=== PATIENT | male | born 1990 | race Caucasian/White ===

== ENCOUNTER → 2016-09-20 | Outpatient (CLI) | payer BC ==
[~2016-09-20] MED LIST: Iopamidol 755 MG/ML 500 ML Multipack Bottle IVPUSH STA
--- NOTE | 2016-09-21 13:25 | CT ---
EXAM DATE: 09/20/16 PATIENT'S AGE: 26 Patient: RAMY GIBBS Facility: [place], [place] Site . Site : 1990 Study: CT Abdomen/Pelvis [id number]/25/2017 10:12:35 AM Ordering Physician: Khoi Sin Final Report: INDICATION: CROHNS F/U TECHNIQUE: CT abdomen and pelvis acquired with IV contrast. COMPARISON: January 08, 2015. FINDINGS: Lower chest: Unremarkable. Liver: Unremarkable. Spleen: Unremarkable. Pancreas: Unremarkable. Gallbladder and bile ducts: Partially contracted. Kidneys: Nonobstructive intrarenal calculus within the upper pole of the left kidney. . Adrenal glands: Unremarkable. GI tract: Postsurgical changes along the ascending colon and rectosigmoid colon. Liquid stool throughout the colon. No evidence of obstruction. The appendix is not visualized. . Vascular structures: Negative. No sign of aneurysm. Lymph nodes: Unremarkable. Miscellaneous: Postsurgical changes within the ventral abdominal wall. Left fat containing periumbilical hernia. Subcutaneous gas within the left ventral abdominal wall which may be related to an injection site. Please correlate clinically. No free air or significant free fluid. Pelvic Organs: Unremarkable. Bones: Unremarkable for age. IMPRESSION: 1. Liquid stool throughout the colon. No evidence of obstruction. Findings are nonspecific, but can be seen with enterocolitis/gastroenteritis. 2. Nonobstructing shadowing calculus within the upper pole of the left kidney. 3. Subcutaneous gas within the left ventral abdominal wall which may be related to an injection site. Please correlate clinically. Dictated by Carroll Priest MD @ 09/21/2016 1:58:54 AM Dictated by: Carroll Priest MD @ 09/21/2016 01:59:22 (Electronic Signature) Report Signed by Proxy and Original Signed Document filed in the Medical Record. [facility]
== END ==
LOC: MW.DI 09:16
PROVIDERS: ATTEND Internal Medicine Gastroenterology
DX: K50.918 Crohn's disease, unspecified, with other complication (principal); N20.0 Calculus of kidney
CPT/HCPCS: 74177; Q9967

== ENCOUNTER 2017-09-07 06:23 | Day surgery (SDC) | payer BC ==
[~2017-09-07 06:23] MED LIST changes: -Iopamidol 755 MG/ML 500 ML Multipack Bottle IVPUSH STA; +Lactated Ringers 1,000 ML IV SCH
[2017-09-07] MEDS ORDERED: Propofol 200 MG/20 ML SDV ONE (07:11)
[2017-09-07] MEDS ORDERED: fentaNYL 250 MCG/5 ML SDV ONE (07:11)
[2017-09-07] MEDS ORDERED: Ondansetron 4 MG/2 ML SDV ONE (07:11)
[2017-09-07] MEDS ORDERED: Midazolam 1 MG/ML 2 ML SDV ONE (07:11)
[2017-09-07] MEDS ORDERED: Lidocaine 2% 5 ML SDV ONE (07:11)
[2017-09-07] MEDS ORDERED: EPINEPHrine 1 MG/ML SDV ONE (07:26)
[2017-09-07] MEDS ORDERED: Oxymetazoline 0.05% Nasal Spray 15 ML Bottle ONE (07:26)
[2017-09-07] MEDS ORDERED: Lidocaine 2% with EPINEPHrine 1:100,000 20 ML MDV ONE (07:26)
[2017-09-07] MEDS ORDERED: Thrombin (Bovine) 5,000 Unit Kit ONE (07:26)
--- NOTE | 2017-09-07 07:31 | PCM.PREANE ---
Preanesthetic Assessment - Anesthesia/Transfusion/Family Hx Anesthesia History: Prior Anesthesia Without Reaction (bowel resection x 2 for crohns) Transfusion History: No Prior Transfusion(s) - Review of Systems General: No Symptoms Pulmonary: No Symptoms Cardiovascular: No Symptoms Gastrointestinal: No Symptoms Neurological: No Symptoms Other: Reports: None - Physical Assessment NPO Status Date: 09/06/17 NPO Status Time: 22:00 O2 Sat by Pulse Oximetry: 96 Respiratory Rate: 16 Vital Signs: Last Vital Signs Temp 36.7 C 09/07/17 06:30 Pulse 92 09/07/17 06:30 Resp 16 09/07/17 06:30 BP 112/73 09/07/17 06:30 Pulse Ox 96 09/07/17 06:30 Height: 1.75 m Weight: 84.822 kg ASA Class: 2 Mental Status: Alert & Oriented x3 Airway Class: Mallampati = 1 Dentition: Reports: Normal Dentition ROM/Head Extension: Full Lungs: Clear to Auscultation, Normal Respiratory Effort Cardiovascular: Regular Rate, Regular Rhythm - Allergies Allergies/Adverse Reactions: Allergies Allergy/AdvReac Type Severity Reaction Status Date / Time Penicillins Allergy Cannot Verified 09/01/17 10:54 Remember - Anesthesia Plan Pre-Op Medication Ordered: None - Acknowledgements Anesthesia Type Planned: General Anesthesia Pt an Appropriate Candidate for the Planned Anesthesia: Yes Alternatives and Risks of Anesthesia Discussed w Pt/Guardian: Yes Pt/Guardian Understands and Agrees with Anesthesia Plan: Yes PreAnesthesia Questionnaire Other HEENT History: wears glasses Respiratory History: Reports: Asthma Other Respiratory History: had asthma as a child, "out grew it" - no inhaler Gastrointestinal History: Reports: Inflammatory Bowel Disease Other Gastrointestinal History: Crohns Disease Musculoskeletal History: Reports: Fracture Other Musculoskeletal History: states had a fx clavicle during Immunologic History: Reports: Immunosuppression - Past Surgical History GI Surgical History: Reports: Colon Other GI Surgeries/Procedures: has had 2 colon resections - SUBSTANCE USE Smoking Status *Q: Current Every Day Smoker Tobacco Use Within Last Twelve Months: Cigarettes Recreational Drug Use History: Yes - HOME MEDS Home Medications: Home Meds Adalimumab [Humira] 1 dose IM ASDIRECTED 09/01/17 [History] azaTHIOprine [Azathioprine] 50 mg PO TID 09/01/17 [History] - CURRENT (IN HOUSE) MEDS Current Meds: Current Medications Lactated Ringer's (Ringers, Lactated) 1,000 mls @ 125 mls/hr IV ASDIRECTED SANCHEZ Last Admin: 09/07/17 07:10 Dose: 125 mls/hr Discontinued Medications Epinephrine HCl (Adrenalin) Confirm Administered Dose 2 mg .ROUTE .STK-MED ONE Stop: 09/07/17 07:27 Fentanyl (Sublimaze) Confirm Administered Dose 250 mcg .ROUTE .STK-MED ONE Stop: 09/07/17 07:12 Lidocaine (Xylocaine-Mpf 2%) Confirm Administered Dose 5 ml .ROUTE .STK-MED ONE Stop: 09/07/17 07:12 Lidocaine/Epinephrine (Xylocaine 2% With Epinephrine 1:100,000) Confirm Administered Dose 20 ml .ROUTE .STK-MED ONE Stop: 09/07/17 07:27 Midazolam HCl (Versed 1 Mg/Ml) Confirm Administered Dose 2 mg .ROUTE .STK-MED ONE Stop: 09/07/17 07:12 Ondansetron HCl (Zofran) Confirm Administered Dose 4 mg .ROUTE .STK-MED ONE Stop: 09/07/17 07:12 Oxymetazoline HCl (Afrin Original 0.05% Nasal [place]) Confirm Administered Dose 15 ml .ROUTE .STK-MED ONE Stop: 09/07/17 07:27 Propofol (Diprivan 20 Ml) Confirm Administered Dose 200 mg .ROUTE .STK-MED ONE Stop: 09/07/17 07:12 Thrombin (Thrombin-Jmi) Confirm Administered Dose 5,000 unit .ROUTE .STK-MED ONE Stop: 09/07/17 07:27
[2017-09-07] MEDS ORDERED: Succinylcholine 200 MG/10 ML MDV ONE (08:00)
[2017-09-07] MEDS ORDERED: Rocuronium 10 MG/ML 10 ML Syringe ONE (08:00)
--- NOTE | 2017-09-07 08:11 | PCM.HPR ---
H & P Addendum review - H & P Addendum Review Date of Original H & P: 08/25/17 Date Reviewed: 09/07/17 Time Reviewed: 07:50 Patient was Examined: No Changes
[2017-09-07] MEDS ORDERED: Metoprolol Tartrate 5 MG/5 ML SDV ONE (08:22)
[2017-09-07] MEDS ORDERED: Acetaminophen 325 MG Tab PO PRN (09:38)
[2017-09-07] MEDS ORDERED: Ibuprofen 400 MG Tab PO PRN (09:38)
--- NOTE | 2017-09-07 09:41 | PCM.POSTAN ---
POST ANESTHESIA ASSESSMENT - MENTAL STATUS Mental Status: Alert, Oriented - RESPIRATORY Respiratory Status: Respiratory Rate WNL, Airway Patent, O2 Saturation Stable - CARDIOVASCULAR CV Status: Pulse Rate WNL, Blood Pressure Stable - GASTROINTESTINAL GI Status: No Symptoms - PAIN Pain Score: 5 Free Text/Narrative:: patient states does not want any pain medication at this time - POST OP HYDRATION Hydration Status: Adequate & Stable
--- NOTE | 2017-09-07 09:42 | PCM.OPNOTE ---
- General Post-Op/Procedure Note Date of Surgery/Procedure: 09/07/17 Operative Procedure(s): Endoscopic excision of Right nasal septal mass Findings: 2 cm X 1.5 cm firm pale mass in mid right nasal septum; base at the bony cartilaginous junction Pre Op Diagnosis: Nasal septal hemangioma Post-Op Diagnosis: Nasal septal hemangioma Anesthesia Technique: General ET Tube Primary Surgeon: Sherri Encinas Anesthesia Provider: Adriano Ruiz Pathology: Nasal septal mass Fluid Replacement, Intraop: 400 EBL in mLs: 150 Condition: Good Free Text/Narrative:: Procedure: An infromed consent was obtained and the patient was brought back to operating room; time out was performed and anesthesia administered. A throat pack was placed and right nasal cavity was packed with an oxymetazoline 0.05% soaked pledget. Part was prepped and draped in a standard sterile fashion. A 0 degree nasal endoscope was used to visualize the mass after removal of the pledget. 2% lidocaine with 1: 100 000 epinephrine was injected at the base of the mass - total of 3 mls was used Mucosa at the anterior superior aspect of the mass was excised with a number 10 blade on BP handle. Suction was used to maintain a clear surgical field. Dissection over the septum was carried out in a supraperichondrial plane with a suction [place]. This was done circumferentially till the thick fibrous attachment superiorly - this was excised with a septal scissor. Haemostasis was ensured with a bipolar at setting of 10 brar; base of the surgical defect was also cauterized. Mass was excised in toto and sent for histopathology. Surgicel and meropore were placed over the surgical site. This concluded the procedure. Post nasal space was suctioned; throat pack was removed and patient was handed over to anesthesia for recovery
[2017-09-07 10:56] VITALS: BP 121/76
--- NOTE | 2017-09-07 12:34 | PCM48HPAN ---
Post Anesthesia Note - EVALUATION WITHIN 48HRS OF ANESTHETIC Vital Signs in Normal Range: Yes Patient Participated in Evaluation: Yes Respiratory Function Stable: Yes Airway Patent: Yes Cardiovascular Function Stable: Yes Hydration Status Stable: Yes Pain Control Satisfactory: Yes Nausea and Vomiting Control Satisfactory: Yes Mental Status Recovered: Yes Resp Rate: 16 Temperature: 36.6 C
== END 2017-09-07 10:15 | disposition home or self-care (01) ==
LOC: MW.SDS 06:23
PROVIDERS: ATTEND Otolaryngology
DX: D18.01 Hemangioma of skin and subcutaneous tissue (principal); J30.9 Allergic rhinitis, unspecified; F17.210 Nicotine dependence, cigarettes, uncomplicated; Z88.0 Allergy status to penicillin
CPT/HCPCS: 31237; A9270; J0171; J0330; J2250; J2405; J3010; J7120; J2704

== ENCOUNTER 2018-09-04 12:06 | Emergency (ER) | payer BC ==
[2018-09-04] MEDS ORDERED: Ketorolac 60 MG/2 ML SDV IM ONE (12:18)
--- NOTE | 2018-09-04 12:39 | EDM.PDOC ---
ED HPI GENERAL MEDICAL PROBLEM - General Chief Complaint: Back Pain or Injury Stated Complaint: LEFT LOWER BACK PAIN Time Seen by Provider: 09/04/18 12:09 Source of Information: Reports: Patient History Limitations: Reports: No Limitations - History of Present Illness INITIAL COMMENTS - FREE TEXT/NARRATIVE: History of present illness: []Patient had an episode of left flank pain last week that resolved spontaneously and has been fine until this morning when the pain returned and more severe. Straightening to his left side but not to his abdomen or testicle. Patient states that he has a history of Crohn's disease but this does not feel the same. He denies any fevers, chills, nausea, vomiting, blood in his urine or Review of systems: As per history of present illness and below otherwise all systems reviewed and negative. Past medical history: As per history of present illness and as reviewed below otherwise noncontributory. Surgical history: As per history of present illness and as reviewed below otherwise noncontributory. Social history: No reported history of drug or alcohol abuse. Family history: As per history of present illness and as reviewed below otherwise noncontributory. Physical exam: General: Well developed, well nourished in NAD HEENT: Atraumatic, normocephalic, pupils reactive, negative for conjunctival pallor or scleral icterus, mucous membranes moist, throat clear, neck supple, nontender, trachea midline. Lungs: Clear to auscultation, breath sounds equal bilaterally, chest nontender. Heart: S1S2, regular, negative for clicks, rubs, or JVD. Abdomen: NABS, Soft, nondistended, nontender. Negative for masses or hepatosplenomegaly. Negative for costovertebral tenderness. Pelvis: Stable nontender. Genitourinary: Deferred. Rectal: Deferred. Extremities: Atraumatic, negative for cords or calf pain. Neurovascular unremarkable. Neuro: Awake, alert, oriented. Cranial nerves II through XII unremarkable. Cerebellum unremarkable. Motor and sensory unremarkable throughout. Exam nonfocal. Skin:warm and dry Diagnostics: CBC, chemistry, lipase, UA Therapeutics: Toradol IM ED Course: Stable Consulted Dr. Dunbar after CT showed a 3 x 5 mm obstructing stone with mild hydronephrosis will follow up in clinic with the patient Impression: Ureterolithiasis Prescriptions: Flomax, diclofenac Plan: Drink plenty of fluids take meds as directed follow-up with Dr. Dunbar next available appointment. Definitive disposition and diagnosis as appropriate pending reevaluation and review of above. left back pain Pain Score (Numeric/FACES): 6 - Related Data Allergies Allergy/AdvReac Type Severity Reaction Status Date / Time Penicillins Allergy Cannot Verified 09/01/17 10:54 Remember Home Meds: Home Meds Adalimumab [Humira] 1 dose IM ASDIRECTED 09/01/17 [History] azaTHIOprine [Azathioprine] 50 mg PO TID 09/01/17 [History] Diclofenac Sodium [Voltaren] 75 mg PO BIDMEALS PRN #20 tab.cr 09/04/18 [Rx] Tamsulosin HCl [Flomax] 0.4 mg PO DAILY #14 cap.er.24h 09/04/18 [Rx] Past Medical History Other HEENT History: wears glasses Respiratory History: Reports: Asthma Other Respiratory History: had asthma as a child, "out grew it" - no inhaler Gastrointestinal History: Reports: Inflammatory Bowel Disease Other Gastrointestinal History: Crohns Disease Musculoskeletal History: Reports: Fracture Other Musculoskeletal History: states had a fx clavicle during Immunologic History: Reports: Immunosuppression - Past Surgical History GI Surgical History: Reports: Colon Other GI Surgeries/Procedures: has had 2 colon resections Male Surgical History: Reports: Vasectomy Social & Family History - Family History Family Medical History: Noncontributory - Tobacco Use Smoking Status *Q: Light Tobacco Smoker Years of Tobacco use: 16 Packs/Tins Daily: 0.1 - Caffeine Use Caffeine Use: Reports: Coffee, Energy Drinks - Recreational Drug Use Recreational Drug Use: Yes Recreational Drug Type: Reports: Marijuana/Hashish ED ROS GENERAL - Review of Systems Review Of Systems: ROS reveals no pertinent complaints other than HPI. ED EXAM,LOWER BACK PAIN/INJURY - Physical Exam Exam: See Below (See history of present illness) Course - Vital Signs Last Recorded V/S: Last Vital Signs Temp 97.4 F 09/04/18 12:14 Pulse 107 H 09/04/18 12:14 Resp 18 09/04/18 12:14 BP 141/103 H 09/04/18 12:14 Pulse Ox 96 09/04/18 12:14 - Orders/Labs/Meds Labs: Laboratory Tests 04/09/19 04/09/19 04/09/19 Range/Units 12:20 12:46 12:46 WBC 10.98 (4.0-11.0) K/uL RBC 4.89 (4.50-5.90) M/uL Hgb 15.9 (13.0-17.0) g/dL Hct 45.5 (38.0-50.0) % MCV 93.0 (80.0-98.0) fL MCH 32.5 H (27.0-32.0) pg MCHC 34.9 (31.0-37.0) g/dL RDW Std Deviation 45.2 (28.0-62.0) fl RDW Coeff of Prakash 13 (11.0-15.0) % Plt Count 261 (150-400) K/uL MPV 8.80 (7.40-12.00) fL Neut % (Auto) 79.1 (48.0-80.0) % Lymph % (Auto) 12.0 L (16.0-40.0) % Loving % (Auto) 7.7 (0.0-15.0) % Eos % (Auto) 0.8 (0.0-7.0) % Baso % (Auto) 0.4 (0.0-1.5) % Neut # (Auto) 8.7 H (1.4-5.7) K/uL Lymph # (Auto) 1.3 (0.6-2.4) K/uL Loving # (Auto) 0.8 (0.0-0.8) K/uL Eos # (Auto) 0.1 (0.0-0.7) K/uL Baso # (Auto) 0.0 (0.0-0.1) K/uL Nucleated RBC % 0.0 /100WBC Nucleated RBCs # 0 K/uL Sodium 144 (136-148) mmol/L Potassium 4.0 (3.5-5.1) mmol/L Chloride 108 H (98-107) mmol/L Carbon Dioxide 27.8 (21.0-32.0) mmol/L BUN 16 (7.0-18.0) mg/dL Creatinine 1.6 H (0.8-1.3) mg/dL Est Cr Clr Drug Dosing 68.74 mL/min Estimated GFR (MDRD) 51.7 ml/min Glucose 93 (74-106) mg/dL Calcium 9.2 (8.5-10.1) mg/dL Total Bilirubin 0.7 (0.2-1.0) mg/dL AST 22 (15-37) IU/L ALT 30 (14-63) IU/L Alkaline Phosphatase 77 (46-116) U/L Total Protein 7.5 (6.4-8.2) g/dL Albumin 4.1 (3.4-5.0) g/dL Globulin 3.4 (2.6-4.0) g/dL Albumin/Globulin Ratio 1.2 (0.9-1.6) Lipase 136 (73-393) U/L Urine Color YELLOW Urine Appearance CLEAR Urine pH 5.5 (5.0-8.0) Ur Specific Vincent >= 1.030 (1.001-1.035) Urine Protein NEGATIVE (NEGATIVE) mg/dL Urine Glucose (UA) NEGATIVE (NEGATIVE) mg/dL Urine Ketones TRACE H (NEGATIVE) mg/dL Urine Occult Blood LARGE H (NEGATIVE) Urine Nitrite NEGATIVE (NEGATIVE) Urine Bilirubin NEGATIVE (NEGATIVE) Urine Urobilinogen 0.2 (<2.0) EU/dL Ur Leukocyte Esterase NEGATIVE (NEGATIVE) Urine RBC 10-15 (0-2/HPF) Urine WBC 0-1 (0-5/HPF) Ur Epithelial Cells OCCASIONAL (NONE-FEW) Urine Bacteria RARE (NEGATIVE) Meds: Medications Discontinued Medications Generic Name Dose Route Start Last Admin Trade Name Freq PRN Reason Stop Dose Admin Ketorolac Tromethamine 60 mg 09/04/18 12:18 09/04/18 12:24 Toradol IM 09/04/18 12:19 60 mg ONETIME ONE Administration Departure - Departure Time of Disposition: 14:15 Disposition: Home, Self-Care 01 Condition: Good Clinical Impression: Ureterolithiasis - Discharge Information *PRESCRIPTION DRUG MONITORING PROGRAM REVIEWED*: No *COPY OF PRESCRIPTION DRUG MONITORING REPORT IN PATIENT NAVEED: No Prescriptions: Diclofenac Sodium [Voltaren] 75 mg PO BIDMEALS PRN #20 tab.cr PRN Reason: Pain Tamsulosin HCl [Flomax] 0.4 mg PO DAILY #14 cap.er.24h Referrals: Sally Whipple [employer] [Primary Care Provider] - Forms: ED Department Discharge Additional Instructions: The following information is given to patients seen in the emergency department who are being discharged to home. This information is to outline your options for follow-up care. We provide all patients seen in our emergency department with a follow-up referral. The need for follow-up, as well as the timing and circumstances, are variable depending upon the specifics of your emergency department visit. If you don't have a primary care physician on staff, we will provide you with a referral. We always advise you to contact your personal physician following an emergency department visit to inform them of the circumstance of the visit and for follow-up with them and/or the need for any referrals to a consulting specialist. The emergency department will also refer you to a specialist when appropriate. This referral assures that you have the opportunity for follow-up care with a specialist. All of these measure are taken in an effort to provide you with optimal care, which includes your follow-up. Under all circumstances we always encourage you to contact your private physician who remains a resource for coordinating your care. When calling for follow-up care, please make the office aware that this follow-up is from your recent emergency room visit. If for any reason you are refused follow-up, please contact the [facility] Emergency Department at and asked to speak to the emergency department charge nurse. Take meds as directed, follow up with your primary care physician, return to ER if symptoms worsen or change. [facility] Specialty Care - Urology [address] [place] [id number]
--- NOTE | 2018-09-04 13:57 | CT ---
CT of the abdomen and pelvis without contrast. HISTORY: Pain TECHNIQUE: Axial CT images were obtained of the abdomen and pelvis without contrast. Coronal and sagittal reconstructions obtained. FINDINGS: The lung bases are clear, no pleural effusion. The liver, spleen, adrenal glands, and pancreas appear unremarkable for noncontrast examination. The gallbladder appears normal. There is no bulky retroperitoneal lymphadenopathy. No abdominal ascites. There is a 3 x 5 mm obstructing stone just proximal to the left ureterovesicular junction with mild proximal hydronephrosis. Punctate nonobstructing left renal stone. The large and small bowel are normal in caliber without evidence of obstruction. Anastomosis changes noted near the rectosigmoid junction as well as clips within the right lower quadrant. There is no bulky pelvic lymphadenopathy. No free fluid. No free air. The urinary bladder appears normal. The visualized osseous structures appear normal. IMPRESSION: 1. There is an obstructing 3 x 5 mm stone within the distal left ureter with mild proximal hydronephrosis.
[2018-09-04 14:27] VITALS: BP 121/83
== END 2018-09-04 14:30 | disposition home or self-care (01) ==
LOC: MW.ED 12:06
DX: N13.2 Hydronephrosis with renal and ureteral calculous obstruction (principal); F17.210 Nicotine dependence, cigarettes, uncomplicated; J45.909 Unspecified asthma, uncomplicated; Z79.899 Other long term (current) drug therapy; Z88.0 Allergy status to penicillin
CPT/HCPCS: 36415; 74176; 80053; 81001; 83690; 85025; 96372; 99284; J1885; 99283

== ENCOUNTER 2019-08-13 06:55 | Emergency (ER) | payer BC ==
[2019-08-13 07:29] VITALS: BP 128/83; PULSE 83
--- NOTE | 2019-08-13 07:48 | EDM.PDOC ---
ED HPI GENERAL MEDICAL PROBLEM - General Chief Complaint: ENT Problem Stated Complaint: LT EAR PAIN Time Seen by Provider: 08/13/19 07:38 Source of Information: Reports: Patient History Limitations: Reports: No Limitations - History of Present Illness Onset: Today Duration: Day(s): (one to two days) Location: Reports: Other (left ear pain for one to two days) Quality: Reports: Pressure, Sharp Severity: Moderate Improves with: Reports: None Worsens with: Reports: None Left ear Pain Score (Numeric/FACES): 6 - Related Data Allergies Allergy/AdvReac Type Severity Reaction Status Date / Time Penicillins Allergy Cannot Verified 08/13/19 07:27 Remember Home Meds: Home Meds Adalimumab [Humira] 1 dose IM ASDIRECTED 09/01/17 [History] azaTHIOprine [Azathioprine] 50 mg PO TID 09/01/17 [History] Azithromycin [Zithromax] 250 mg PO DAILY 10 Days #10 tablet 08/13/19 [Rx] Dextroamphetamine/Amphetamine [Adderall] 1 dose PO ASDIRECTED 08/13/19 [History] Ibuprofen [Motrin] 800 mg PO TID PRN 7 Days #21 tablet 08/13/19 [Rx] Past Medical History HEENT History: Reports: Other (See Below) Other HEENT History: wears glasses Cardiovascular History: Reports: None Respiratory History: Reports: Asthma Other Respiratory History: had asthma as a child, "out grew it" - no inhaler Gastrointestinal History: Reports: Inflammatory Bowel Disease Other Gastrointestinal History: Crohns Disease Genitourinary History: Reports: None Musculoskeletal History: Reports: Fracture Other Musculoskeletal History: states had a fx clavicle during Neurological History: Reports: None Psychiatric History: Reports: None Endocrine/Metabolic History: Reports: None Hematologic History: Reports: None Immunologic History: Reports: Immunosuppression Oncologic (Cancer) History: Reports: None Dermatologic History: Reports: None - Infectious Disease History Infectious Disease History: Reports: None - Past Surgical History Head Surgeries/Procedures: Reports: None HEENT Surgical History: Reports: None Cardiovascular Surgical History: Reports: None Respiratory Surgical History: Reports: None GI Surgical History: Reports: Colon Other GI Surgeries/Procedures: has had 2 colon resections Male Surgical History: Reports: Vasectomy Endocrine Surgical History: Reports: None Neurological Surgical History: Reports: None Musculoskeletal Surgical History: Reports: None Oncologic Surgical History: Reports: None Dermatological Surgical History: Reports: None Social & Family History - Family History Family Medical History: Noncontributory - Tobacco Use Smoking Status *Q: Current Every Day Smoker Years of Tobacco use: 12 Packs/Tins Daily: 1 - Caffeine Use Caffeine Use: Reports: Coffee, Energy Drinks, Soda, Tea - Recreational Drug Use Recreational Drug Use: No ED ROS ENT - Review of Systems Review Of Systems: See Below Constitutional: Reports: No Symptoms HEENT: Reports: Ear Pain (left ear) Respiratory: Reports: No Symptoms Cardiovascular: Reports: No Symptoms Endocrine: Reports: No Symptoms GI/Abdominal: Reports: No Symptoms : Reports: No Symptoms Musculoskeletal: Reports: No Symptoms Skin: Reports: No Symptoms ED EXAM, ENT - Physical Exam Exam: See Below Exam Limited By: No Limitations General Appearance: Alert, WD/WN, No Apparent Distress Ears: Normal External Exam, Hearing Grossly Normal, TM Bulging (left ), TM Dullness (left), TM Erythema (left). No: TM Fluid, TM Perforation Nose: Normal Inspection, Normal Mucousa, No Blood Mouth/Throat: Normal Inspection, Normal Gums, Normal Lips, Normal Oropharynx, Normal Teeth Head: Atraumatic, Normocephalic Neck: Normal Inspection, Supple, Non-Tender, Full Range of Motion Respiratory/Chest: No Respiratory Distress, Lungs Clear, Normal Breath Sounds, No Accessory Muscle Use, Chest Non-Tender Cardiovascular: Normal Peripheral Pulses, Regular Rate, Rhythm, No Edema, No Gallop, No JVD, No Murmur, No Rub GI/Abdominal: Normal Bowel Sounds, Soft, Non-Tender (Male) Exam: Deferred Rectal (Males) Exam: Deferred Back: Normal Inspection Extremities: Normal Inspection, Normal Range of Motion Skin: Warm, Dry, Intact, Normal Color, No Rash Lymphatic: No Adenopathy Course - Vital Signs Text/Narrative:: Left otitis media noted. I discussed with the patient his diagnosis of Left Otitis Media. He will be discharged. He agrees with the discharge plan. Last Recorded V/S: Last Vital Signs Temp 97.3 F 08/13/19 07:28 Pulse 83 08/13/19 07:28 Resp 18 08/13/19 07:28 BP 128/83 08/13/19 07:28 Pulse Ox 97 08/13/19 07:28 Departure - Departure Time of Disposition: 08:12 Disposition: Home, Self-Care 01 Condition: Good Clinical Impression: Otitis media of left ear Qualifiers: Otitis media type: unspecified Qualified Code(s): H66.92 - Otitis media, unspecified, left ear - Discharge Information *PRESCRIPTION DRUG MONITORING PROGRAM REVIEWED*: Yes *COPY OF PRESCRIPTION DRUG MONITORING REPORT IN PATIENT NAVEED: Yes Instructions: Otitis Media, Adult Referrals: Lilian Greene PA [Primary Care Provider] - Additional Instructions: Take all medications as directed. Follow up with your PCP in the next two to four days. Drink plenty of clear liquids for the next 24 hours. Rest for the next 24 hours. Return to the ED if your condition gets worse or should you have any questions or concerns. The following information is given to patients seen in the emergency department who are being discharged to home. This information is to outline your options for follow-up care. We provide all patients seen in our emergency department with a follow-up referral. The need for follow-up, as well as the timing and circumstances, are variable depending upon the specifics of your emergency department visit. If you don't have a primary care physician on staff, we will provide you with a referral. We always advise you to contact your personal physician following an emergency department visit to inform them of the circumstance of the visit and for follow-up with them and/or the need for any referrals to a consulting specialist. The emergency department will also refer you to a specialist when appropriate. This referral assures that you have the opportunity for follow-up care with a specialist. All of these measure are taken in an effort to provide you with optimal care, which includes your follow-up. Under all circumstances we always encourage you to contact your private physician who remains a resource for coordinating your care. When calling for follow-up care, please make the office aware that this follow-up is from your recent emergency room visit. If for any reason you are refused follow-up, please contact the [facility] Emergency Department at and asked to speak to the emergency department charge nurse. Sepsis Event Note - Evaluation Sepsis Screening Result: No Definite Risk - Focused Exam Vital Signs: Vital Signs Temp Pulse Resp BP Pulse Ox 08/13/19 07:28 97.3 F 83 18 128/83 97 Date Exam was Performed: 08/13/19 Time Exam was Performed: 07:38
[2019-08-13] MEDS ORDERED: Azithromycin 250 MG Tab PO ONE (07:55)
[2019-08-13] MEDS ORDERED: Ibuprofen 800 MG Tab PO ONE (08:00)
== END 2019-08-13 08:32 | disposition home or self-care (01) ==
LOC: MW.ED 06:55
DX: H66.92 Otitis media, unspecified, left ear (principal); J45.909 Unspecified asthma, uncomplicated; F17.210 Nicotine dependence, cigarettes, uncomplicated; K50.90 Crohn's disease, unspecified, without complications; Z79.899 Other long term (current) drug therapy; Z88.0 Allergy status to penicillin
CPT/HCPCS: 99282; A9270

== ENCOUNTER 2020-02-08 11:01 | Emergency (ER) | payer BC, OTHER ==
[2020-02-08] MEDS ORDERED: Diphtheria,Pertussis(Acell),Tetanus Vaccine 0.5 ML Syringe IM ONE (11:26)
[2020-02-08] MEDS ORDERED: Lidocaine 1% PF 2 ML SDV INJECT ONE (11:26)
[2020-02-08 11:28] VITALS: BP 139/87; PULSE 100
[2020-02-08] MEDS ORDERED: Lidocaine 1% 2 ML ONE (11:28)
--- NOTE | 2020-02-08 11:30 | EDM.PDOC ---
<Garfield Moreno E - Last Filed: 02/08/20 12:01> ED HPI GENERAL MEDICAL PROBLEM - General Chief Complaint: Laceration Stated Complaint: CUT LT POINTER FINGER Time Seen by Provider: 02/08/20 11:09 - Related Data Allergies Allergy/AdvReac Type Severity Reaction Status Date / Time Penicillins Allergy Cannot Verified 02/08/20 11:20 Remember Home Meds: Home Meds Adalimumab [Humira] 1 dose IM ASDIRECTED 09/01/17 [History] azaTHIOprine [Azathioprine] 50 mg PO DAILY 09/01/17 [History] Dextroamphetamine/Amphetamine [Adderall 10 mg Tablet] 1 tab PO DAILY PRN 02/08/20 [History] buPROPion HCL [Bupropion Xl] 300 mg PO DAILY 02/08/20 [History] ED SKIN PROCEDURES - Laceration/Wound Repair Left index finger Appearance: Subcutaneous, Linear, Clean Distal NVT: Neuro & Vascular Intact, No Tendon Injury Anesthetic Type: Local Local Anesthesia - Lidocaine (Xylocaine): 1% Plain Local Anesthetic Volume: 2cc Skin Prep: Chlorhexidine (Hibiciens), Saline, Sterile Drape Saline Irrigation (cc's): 500 Exploration/Debridement/Repair: Wound Explored, In a Bloodless Field, Explored to Base, No Foreign Material Found Closed with: Sutures Lac/Wound length In cm: 3 Suture Size: 4-0 # of Sutures: 7 Suture Type: Nylon, Interrupted, Simple Drain Placement: No Sterile Dressing Applied: Provider Tetanus Status Addressed: Yes Complications: No Progress/Comments: 1% lidocaine was used to anesthetize the area. Area was thoroughly cleansed with chlorhexidine and wound wash. Usual and customary procedures were followed for suture placement. 4-0 chromic, #1 interrupted suture was placed internally to close off a small vessel that was bleeding. This was done successfully. 4- 0 nylon, #6 interrupted sutures were placed. Nonstick dressing applied. Patient was monitored for 15 to 20 minutes to make sure there was no breakthrough bleeding. Departure - Departure Disposition: Home, Self-Care 01 Clinical Impression: Finger laceration Qualifiers: Encounter type: initial encounter Finger: index finger Damage to nail status: without damage Foreign body presence: without foreign body Laterality: left Qualified Code(s): S61.211A - Laceration without foreign body of left index finger without damage to nail, initial encounter - Discharge Information Instructions: Laceration Care, Adult, [id number], Wound Care, Adult, Sutures, Adore, or Adhesive Wound Closure, [id number] Referrals: Samuel Adame [Primary Care Provider] - Jeniffer Zeng [Ordering Only Provider] - 2 Days Forms: ED Department Discharge Additional Instructions: Please follow-up with the hand surgeon listed above or the orthopedic clinic listed below for follow-up since you have some diminished sensation over the tip of your finger and to ensure appropriate healing and for suture removal. Please follow-up with them as soon as possible. You will need to have the sutures removed in the next 7 to 10 days. Keep the wound clean and dry. Keep it completely dry for the next 24 hours and then you may gently wash with soap and water but do not submerge. The following information is given to patients seen in the emergency department who are being discharged to home. This information is to outline your options for follow-up care. We provide all patients seen in our emergency department with a follow-up referral. The need for follow-up, as well as the timing and circumstances, are variable depending upon the specifics of your emergency department visit. If you don't have a primary care physician on staff, we will provide you with a referral. We always advise you to contact your personal physician following an emergency department visit to inform them of the circumstance of the visit and for follow-up with them and/or the need for any referrals to a consulting specialist. The emergency department will also refer you to a specialist when appropriate. This referral assures that you have the opportunity for follow-up care with a specialist. All of these measure are taken in an effort to provide you with optimal care, which includes your follow-up. Under all circumstances we always encourage you to contact your private physician who remains a resource for coordinating your care. When calling for follow-up care, please make the office aware that this follow-up is from your recent emergency room visit. If for any reason you are refused follow-up, please contact the [facility] Emergency Department at and asked to speak to the emergency department charge nurse. [facility] Professional Building [address] [place] [address], [address] [place] [address] <Soraya Butcher - Last Filed: 02/08/20 12:59> ED HPI GENERAL MEDICAL PROBLEM - General Source of Information: Reports: Patient - History of Present Illness INITIAL COMMENTS - FREE TEXT/NARRATIVE: History of present illness: 30-year-old male presenting with left index finger laceration over the palmar and medial surface of the distal index finger with active bleeding. Apparently he was attempting to use a knife to cut through some plastic Tupperware when the knife pushed through the Tupperware and cut through his finger. He is not sure of his last tetanus shot. He does report some numbness distal to the laceration. He is able to move the finger without any difficulty. No other injury sustained. Patient is right-hand dominant. Review of systems: As per history of present illness and below otherwise all systems reviewed and negative. Past medical history: As per history of present illness and as reviewed below otherwise noncontributory. Crohn's disease Surgical history: As per history of present illness and as reviewed below otherwise noncontributory. Colon resection Social history: No reported history of drug or alcohol abuse. Daily smoker with electronic cigarette Family history: As per history of present illness and as reviewed below otherwise nonco ntributory. Physical exam: GEN: no acute distress, well appearing HEENT: Atraumatic, normocephalic, mucous membranes moist, Neck: supple. Lungs: No respiratory distress. Heart: RRR Extremities: Left index finger laceration over the palmar and medial surface total about 3 cm with active bleeding and small pumping blood vessel. It appears clean without any contamination. The patient does have full and intact motor strength both with extension and flexion of the finger. He is able to make a good strong fist. He does have some decreased sensation over the tip of the finger distal to the laceration. Normal cap refill time. The remainder of the hand is unremarkable. The remainder of the extremity is unremarkable as well. Right upper extremity unremarkable. Neuro: Awake, alert, oriented. Neuro Exam nonfocal. Skin: warm, dry, no lesions. 3 cm laceration of the left index finger as above. Diagnostics: Not indicated Therapeutics: Tetanus, lidocaine MDM: Impression: [] Plan: [] Definitive disposition and diagnosis as appropriate pending reevaluation and review of above. Left Hand Pain Score (Numeric/FACES): 4 Past Medical History HEENT History: Reports: Other (See Below) Other HEENT History: wears glasses Cardiovascular History: Reports: None Respiratory History: Reports: Asthma Other Respiratory History: had asthma as a child, "out grew it" - no inhaler Gastrointestinal History: Reports: Inflammatory Bowel Disease Other Gastrointestinal History: Crohns Disease Genitourinary History: Reports: None Musculoskeletal History: Reports: Fracture Other Musculoskeletal History: states had a fx clavicle during Neurological History: Reports: None Psychiatric History: Reports: None Endocrine/Metabolic History: Reports: None Hematologic History: Reports: None Immunologic History: Reports: Immunosuppression Oncologic (Cancer) History: Reports: None Dermatologic History: Reports: None - Infectious Disease History Infectious Disease History: Reports: None - Past Surgical History Head Surgeries/Procedures: Reports: None HEENT Surgical History: Reports: None Cardiovascular Surgical History: Reports: None Respiratory Surgical History: Reports: None GI Surgical History: Reports: Colon Other GI Surgeries/Procedures: has had 2 colon resections Male Surgical History: Reports: Vasectomy Endocrine Surgical History: Reports: None Neurological Surgical History: Reports: None Musculoskeletal Surgical History: Reports: None Oncologic Surgical History: Reports: None Dermatological Surgical History: Reports: None Social & Family History - Family History Family Medical History: Noncontributory - Caffeine Use Caffeine Use: Reports: Coffee, Energy Drinks, Soda, Tea ED ROS GENERAL - Review of Systems Review Of Systems: See Below (See HPI) ED EXAM, SKIN/RASH Exam: See Below (See HPI) Exam Limited By: No Limitations General Appearance: Alert, WD/WN, No Apparent Distress Ears: Normal External Exam, Normal Canal, Hearing Grossly Normal, Normal TMs Nose: Normal Inspection, Normal Mucosa, No Blood Throat/Mouth: Normal Inspection, Normal Lips, Normal Teeth, Normal Gums, Normal Oropharynx, Normal Voice, No Airway Compromise Head: Atraumatic, Normocephalic Neck: Normal Inspection, Supple, Non-Tender, Full Range of Motion Respiratory/Chest: No Respiratory Distress, Lungs Clear, Normal Breath Sounds, No Accessory Muscle Use, Chest Non-Tender Cardiovascular: Normal Peripheral Pulses, Regular Rate, Rhythm, No Edema, No Gallop, No JVD, No Murmur, No Rub GI/Abdominal: Normal Bowel Sounds, Soft, Non-Tender, No Organomegaly, No Distention, No Abnormal Bruit, No Mass (Male) Exam: No Hernia, Normal Inspection, Normal Prostate, Circumcised Rectal (Males) Exam: Normal Exam, Normal Rectal Tone, Prostate Normal Back Exam: Normal Inspection, Full Range of Motion, NT Extremities: Normal Inspection, Normal Range of Motion, Non-Tender, No Pedal Edema, Normal Capillary Refill Neurological: Alert, Oriented, CN II-XII Intact, Normal Cognition, Normal Gait, Normal Reflexes, No Motor/Sensory Deficits Psychiatric: Normal Affect, Normal Mood Lymphatic: No Adenopathy Course - Vital Signs Text/Narrative:: Index finger laceration with mild decreased sensation distal to the laceration, suspect injury to superficial dermal nerve though intact blood flow to the area. Full range of motion with good strength and no tendon injury. Last Recorded V/S: Last Vital Signs Temp 96.8 F L 02/08/20 11:22 Pulse 100 02/08/20 11:22 Resp 17 02/08/20 11:22 BP 139/87 02/08/20 11:22 Pulse Ox 96 02/08/20 11:22 - Orders/Labs/Meds Orders: Active Orders 24 hr Category Date Time Status Vaccines to be Administered [RC] PER UNIT ROUTINE Care 02/08/20 11:26 Active Meds: Medications Discontinued Medications Generic Name Dose Route Start Last Admin Trade Name Aruna PRN Reason Stop Dose Admin Diphtheria/Tetanus/Acell Pertussis 0.5 ml 02/08/20 11:26 02/08/20 11:31 Adacel IM 02/08/20 11:27 0.5 ml .ONCE ONE Administration Lidocaine HCl Confirm 02/08/20 11:28 02/08/20 11:32 Xylocaine-Mpf 1% Administered 02/08/20 11:29 Not Given Dose 2 mls @ as directed .ROUTE .STK-MED ONE Lidocaine HCl 2 ml 02/08/20 11:26 02/08/20 11:31 Xylocaine-Mpf 1% INJECT 02/08/20 11:27 2 ml ONETIME ONE Administration - Re-Assessments/Exams Free Text/Narrative Re-Assessment/Exam: 02/08/20 12:42 Patient tolerated suturing well. Compression dressing was placed after completion of suturing, on reassessment after removing the compression dressing, the patient has no active bleeding. He has full and intact range of motion with no limitation. Minimal ooze of blood after range of motion testing attempted, easily controlled. Will replace with gauze/Kerlix dressing. Discussed with patient plan for referral to hand surgery or orthopedics. Will give both hand surgeon and [place] and orthopedic clinic here for patient to be evaluated soon as possible. Suture removal discussed with patient as well. Return instructions discussed. The patient is feeling well and in no acute distress. Please see Tiah's note for full suture procedure documentation. Departure - Departure Time of Disposition: 12:45 Sepsis Event Note (ED) - Focused Exam Vital Signs: Vital Signs Temp Pulse Resp BP Pulse Ox 02/08/20 11:22 96.8 F L 100 17 139/87 96
== END 2020-02-08 13:10 | disposition home or self-care (01) ==
LOC: MW.ED 11:01
DX: S61.211A Laceration without foreign body of left index finger without damage to nail, initial encounter (principal); J45.909 Unspecified asthma, uncomplicated; Z88.0 Allergy status to penicillin; Z79.899 Other long term (current) drug therapy; Z23 Encounter for immunization; W26.0XXA Contact with knife, initial encounter
CPT/HCPCS: 12002; 90471; 90715; 99282; J2001

== ENCOUNTER 2022-01-21 10:33 | Emergency (ER) | payer SELFPAY ==
[2022-01-21] MEDS ORDERED: Sodium Chloride 0.9% 2.5 ML Syringe FLUSH PRN (11:37)
[2022-01-21] MEDS ORDERED: Ondansetron 4 MG/2 ML SDV IVPUSH ONE (11:37)
[2022-01-21] MEDS ORDERED: Sodium Chloride 0.9% 10 ML Syringe FLUSH PRN (11:37)
[2022-01-21] MEDS ORDERED: Sodium Chloride 0.9% 1,000 ML IV ONE (11:37)
[2022-01-21] MEDS ORDERED: Ketorolac 30 MG/ML SDV IVPUSH ONE (11:38)
[2022-01-21] MEDS ORDERED: fentaNYL 50 MCG/ML SDV IVPUSH ONE (12:33)
[2022-01-21 12:59] VITALS: BP 128/81; PULSE 81
[2022-01-21 13:21] LABS: BLOOD UREA NITROGEN,BUN 14 mg/dL (7.0-18.0); CARBON DIOXIDE,CO2 27.6 mmol/L (21.0-32.0); CHLORIDE,CL 104 mmol/L (98-107); GLUCOSE RANDOM 113 mg/dL (74-106); POTASSIUM,K 3.6 mmol/L (3.5-5.1); SODIUM,NA 141 mmol/L (136-148)
[2022-01-21 13:22] LABS: ESTIMATED GFR 83 mL/min (>60)
[2022-01-21] MEDS ORDERED: Tamsulosin 0.4 MG Cap.ER PO ONE (15:04)
== END 2022-01-21 16:17 | disposition home or self-care (01) ==
LOC: MW.ED 10:33
DX: N23 Unspecified renal colic (principal); Z88.0 Allergy status to penicillin; Z79.899 Other long term (current) drug therapy
CPT/HCPCS: 36415; 74176; 80053; 81001; 85025; 96361; 96374; 96375; 99284; A9270; J1885; J2405; J3010; J3490; J7030